=== PATIENT | male | born 1980 | race Caucasian/White ===

== ENCOUNTER 2023-03-04 08:51 | Emergency (ER) | payer BC, SELFPAY ==
[2023-03-04 08:58] VITALS: BP 141/84; PULSE 73; RESP 20; TEMP 36.7; O2SAT 100
--- NOTE | 2023-03-04 09:25 | ED.SKABFB ---
HPI - Skin/Abscess/Foreign Bdy General Chief complaint: Skin/Abscess/Foreign Body Stated complaint: Left toe blister growing Time Seen by Provider: 03/04/23 09:25 History of Present Illness HPI narrative: Patient presents with that paronychia to his left little toe. Patient states he noticed a couple days ago but the swelling and pain has gotten worse in the last 24 hours. Patient denies any drainage from the area. No streaking. Related Data Allergies Allergy/AdvReac Type Severity Reaction Status Date / Time ampicillin Allergy Unknown unknown Verified 03/04/23 09:34 Review of Systems Review of Systems: CONSTITUTIONAL: Denies fever, chills, or sweats. EYES: Denies visual changes, redness, or discharge. ENT: Denies rhinorrhea, congestion, sore throat, or otalgia. CARDIOVASCULAR: Denies chest pain, palpitations, or edema. RESPIRATORY: Denies cough or dyspnea. GASTROINTESTINAL: Denies abdominal pain, nausea, vomiting, or diarrhea. GENITOURINARY: Denies dysuria or hematuria. SKIN: Denies rash or itching. MUSCULOSKELETAL: Denies back pain, joint pain, or myalgia. NEUROLOGIC: Denies headache, numbness, or weakness. PSYCHIATRIC: Denies anxiety or depression. PMFSH Comments At time of signature, agree with nursing past medical, surgical, social and family history. There is no relevant family history pertinent to the presenting complaint Exam Narrative: GENERAL: Well-appearing, well-nourished, and in no acute distress. HEAD: Normocephalic, atraumatic. EYES: PERRLA and EOMI. ENT: Nares clear, no rhinorrhea or epistaxis. Mucous membranes moist. NECK: Supple. CHEST: Clear to auscultation. No respiratory distress. HEART: Regular rate and rhythm. No murmur heard. Normal peripheral pulses. ABDOMEN: Soft, nontender, nondistended, normal active bowel sounds. EXTREMITIES: Normal range of motion. No edema.left little toe sWELLING AND REDNESS AND FLUCTUANCE CONSISTENT WITH PARONYCHIA. NORMAL CAP REFILL. NORMAL SENSATION OF DISTAL TOE. NORMAL 2 POINT DISCRIMINATION. NORMAL MOVEMENT OF TOE AT PIP, DIP, MCP. NORMAL FOOT EXAM. NO STREAKING OR REDNESS INTO FOOT SKIN: Warm, dry, no rash. NEURO: No focal deficits. Alert and oriented x3. [place] Coma Scale Eye Opening: Spontaneous 4 [place] Coma Scale Motor: Obeys Commands 6 [place] Coma Scale Verbal: Oriented 5 [place] Coma Scale Total 15 Course Course Level of Care: Express Care Visit Vital Signs Vital signs: Vital Signs Temperature 36.7 C 03/04/23 08:58 Pulse Rate 73 03/04/23 08:58 Respiratory Rate 20 03/04/23 08:58 Blood Pressure 141/84 H 03/04/23 08:58 Pulse Oximetry 100 03/04/23 08:58 Oxygen Delivery Room Air 03/04/23 08:58 Temperature 36.7 C 03/04/23 08:58 Pulse Rate 73 03/04/23 08:58 Respiratory Rate 20 03/04/23 08:58 Blood Pressure 141/84 H 03/04/23 08:58 Pulse Oximetry 100 03/04/23 08:58 Oxygen Delivery Room Air 03/04/23 08:58 Please CARY schedule a followup visit with your personal physician for further evaluation and treatment. Including recheck and discussion of your blood pressure. If your symptoms persist, change or worsen significantly before you can contact your personal physician then please, without delay, go to the emergency department for further evaluation MDM - Skin/Abscess/Foreign Bdy Differential Diagnosis Differential diagnosis: Likely viral exanthem, dermatophytosis, urticaria, herpes zoster, allergic reaction to drug, cellulitis, eczema, insect bites, impetigo and contact dermatitis Discharge Plan Discharge Clinical Impression: Paronychia Patient Disposition: Home, Self-Care Condition: Stable Instructions: Antibiotic Form, Paronychia (ED) Additional Instructions: The following will help your at home: ?Soak the wound in hot water or apply hot packs (small towel soaked in hot water) to the area for 20 minutes at a time. Do this three to four times a day. ?Apply antibiotic cream or ointment onto the skin 3
== END 2023-03-04 09:33 | disposition home or self-care (01) ==
PROVIDERS: Emergency Provider Nurse Practitioner Family
DX: L03.032 Cellulitis of left toe (principal)
CPT/HCPCS: 99203; G0463

== ENCOUNTER 2023-04-09 10:40 | Emergency (ER) | payer BC, SELFPAY ==
--- NOTE | ~2023-04-09 | XR_ITS ---
EXAMINATION: XR chest 2V DATE: 04/09/2023 11:17 INDICATION: Cough. Smoker. TECHNIQUE: Frontal and lateral views of the chest were obtained. COMPARISON: None. FINDINGS: A calcified right lung nodule is consistent with old granulomatous disease. No pleural effu leti or pneumothorax. The heart size is normal. IMPRESSION: 1. No acute cardiopulmonary disease. Reviewed, dictated and finalized at location A.
[2023-04-09 10:45] VITALS: BP 126/85; PULSE 73; RESP 16; TEMP 36.7; O2SAT 99
--- NOTE | 2023-04-09 11:08 | ED.URI ---
HPI - URI/Sore Throat General Chief Complaint: Upper Respiratory Infection Stated Complaint: Cough/Sinus Pain Source: patient and RN notes reviewed History of Present Illness HPI Narrative: 43-year-old male presents to urgent care with complaints of a cough times 10 days. Patient states his cough is worse at nighttime. The patient states this started out with congestion in his face which is improving but his cough is no longer productive. Pt reports SOB with exertion. Denies any ear pain, sore throat, chest pain, fevers, chills, or vomiting. Pt states he did take a cough drop the other night. Related Data Allergies Allergy/AdvReac Type Severity Reaction Status Date / Time ampicillin Allergy Unknown unknown Verified 04/09/23 10:54 Review of Systems Review of Systems: Pertinent positives and pertinent negatives per HPI. PMFSH Comments At the time of my signature, I reviewed and agree with the nursing past medical, surgical, social, and family history. There is no relevant family history pertinent to the patient complaint. Exam Narrative: GENERAL: This is a well-nourished, well-developed patient, in no apparent distress. HEAD: normocephalic, atraumatic. EYES: Sclera clear/white. Vision is grossly intact. EARS: External ears normal, auditory canals clear and without drainage, TMs normal without perforation. Hearing grossly intact. NOSE: External nose normal with no obvious nasal discharge, nares without redness, no rhinorrhea. THROAT: Mucous membranes moist, posterior pharynx clear. NECK: Neck supple, non-tender without lymphadenopathy, masses or thyromegaly. CARDIOVASCULAR: Regular rate and rhythm without murmurs, gallops, or rubs. RESPIRATORY: Clear to auscultation. Breath sounds equal bilaterally. No wheezes, rales, or rhonchi. SKIN: warm, intact with no suspicious lesions or rash, good texture and turgor. NEURO: awake, alert, and oriented to person, place and time. There were no obvious focal neurologic abnormalities. BACK: Nontender without deformity or crepitus. No flank tenderness. Course Course Level of Care: Express Care Visit Vital Signs Vital signs: Vital Signs Temperature 98.1 F 04/09/23 10:45 Pulse Rate 73 04/09/23 10:45 Respiratory Rate 16 04/09/23 10:45 Blood Pressure 126/85 04/09/23 10:45 Pulse Oximetry 99 04/09/23 10:45 Oxygen Delivery Room Air 04/09/23 10:45 Temperature 98.1 F 04/09/23 10:45 Pulse Rate 73 04/09/23 10:45 Respiratory Rate 16 04/09/23 10:45 Blood Pressure 126/85 04/09/23 10:45 Pulse Oximetry 99 04/09/23 10:45 Oxygen Delivery Room Air 04/09/23 10:45 Reviewed MDM - URI/Sore Throat MDM Narrative Medical decision making narrative: Take steroids as directed. May use the inhaler every 4-6 hours as needed for coughing. Increase fluids at home. Avoid any and all smoke. May use a humidifier in the bedroom. Increase your Vitamin C. Follow-up with personal physician in 2-5 days. Differential Diagnosis Differential diagnosis: Likely upper respiratory infection, bronchitis and other (pna) Imaging Data Radiologist's impression: [facility] [employer] [place] [address] XRay Report Signed Patient: Joel Lubin : 1980 MR#: [id number] Age/Sex: 43 / M Acct:[id number] Loc: [facility]? ? ADM Date: 04/09/23Attending Dr: Ordering Physician: Fani Schmidt APRN Date of Service: 04/09/23 Procedure(s): XR chest 2V Accession Number(s): [id number] cc: Fani Schmidt APRN; UNKNOWN,DOCTOR~ EXAMINATION: XR chest 2V DATE: 04/09/2023 11:17 INDICATION: Cough. Smoker. TECHNIQUE: Frontal and lateral views of the chest were obtained. COMPARISON: None. FINDINGS: A calcified right lung nodule is consistent with old granulomatous disease. No pleural effusion or pneumothorax. The heart size is normal. IMPRESSION: 1. No acute cardiopulmonary disease.
== END 2023-04-09 11:30 | disposition home or self-care (01) ==
PROVIDERS: Emergency Provider Nurse Practitioner Family
DX: J40 Bronchitis, not specified as acute or chronic (principal)
CPT/HCPCS: 71046; 99213; G0463

== ENCOUNTER 2025-08-02 10:09 | Emergency (ER) | payer BC, SELFPAY ==
--- OUTSIDE RECORDS SUMMARY | 2020-04-20 08:15 | XMS_ITS | Continuity of Care Document ---
Author Organization [facility] Address [address] [facility] [facility] [address] [place] [address] Phone Care Team Providers Care Postie Name Role Phone Gerber Stapleton MD Unavailable Unavailable Allergies, Adverse Reactions, Alerts Substance Reaction Status Criticality No Known Allergies Active No Inform ation Medications Medication Instructions Dosage Effective Dates (start - stop) Status Comments Polytrim 10,000 unit-1 mg/mL eye drops instill 1 drop by ophthalmic route 4 times every day into right eye 1 drop - Active Procedures Procedure Date Remove Foreign Body From Eye Office/outpatient Visit, Est Remove Foreign Body From Eye Office/outpatient Visit, New Office/outpatient Visit, New Remove Foreign Body From Eye Advance Directives Directive Yes / No Effective Date File Name No Information Encounters Encounter Description Practice Location Reason(s) For Visit Diagnoses Date Provider Providers Copied on Encounter Office/outpat ient Visit, Est [facility], [address], [place], [place], [address], [place] tel:[phone] SEC Joe PISANO Professional 1 week cornea check (chief complaint) Foreign body of right cornea, subsequent encounter 0 Pieter Mayes. [address], [facility] [place], [address], [place]. tel:[phone] Referring Provider: Gerber Pal [address], [place], [address] . tel:[phone] Office/outpat ient Visit, [facility], [address], [place], [place], [address], tel:[phone] SEC Joe [place] Professional WIE (chief complaint) Foreign body of right cornea, initial encounter 0 Pieter Mayes. [address] [facility], [address], [place], [place], [address], [place]. tel:[phone] Referring Provider: Gerber Pal, [address] [facility] [address], [place], [address] . tel:[phone] Office/outpat ient Visit, [facility], [address], [place], [place], [address], tel:[phone] SEC [place] Professional Foreign body sensation (chief complaint) Corneal foreign body 5 Roland Cherry. [address] [facility], [facility] [address], [place], [place], [address], . tel:[phone] Referring Provider: Dilip Degroot, [address] [facility] [address], [place], [address] . tel:[phone] Family History Family Member Type Diagnosis Age At Onset No Information Payers Payer name Insurance type Covered green party ID Pankaj hogannina(danial) Cindy [facility] [id number] Social History Type Description Quantity Date Captured Comments Alcohol Use Details No Caffeine Use Details Tobacco Use Status Cigarette smoker Smoking Status Current every day smoker Smoking Tobacco Use Details Cigarette: No Details Available Cigarette: No Details Available Sex Male Chief Complaint And Reason For Visit From encounter dated '04/20/2020 13:15'. 1 week cornea check (chief complaint). Description: The 40 year old male presents for evaluation of1 week cornea check in the right eye. Patient states the eye still feels irritated at times. Patient using Poly qid OD patient admits to occasionally missing a gtt. Patient does not have a PCP Reason For Referral Reason For Referral No Information Plan Of Treatment Date Type Action Status Goal Tobacco cessation counseling completed Goal Tobacco cessation counseling completed Patient Education Object in the Eye: Care Instructions completed Patient Education Object in the Eye: Care Instructions completed History Of Present Illness Encounter Date Complaint History Of Prese nt Illness 1 week cornea check The 40 year old male presents for evaluation of 1 week cornea check in the right eye. Patient states the eye still feels irritated at times. Patient using Poly qid OD patient admits to occasionally missing a gtt. Patient does not have a PCP WIE The 40 year old male presents for evaluation of WIE in the right eye. 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 Patient states the eye is red, FBS, sensitive to light, and painful. Patient states the eye was worse yesterday than today. Patient does not have a PCP Foreign body sensation Patient p resents for a WIE. Patient c/o while grinding Monday got a piece of metal in OS. Patient went to ER. Patient c/o OS red, watering, and sensitive to light. Functional Status Date Functional Assessmen t No Information Instructions Date Instruction Additional Infor michael Impression/Plan Impression/Plan - [place] used at slit lamp to remove foreign body OS. Start Ilevro OS BID prn for pain, and Tobrex QID OS. Sampe of Ilevro given. Erx Tobrex to [facility] in [place]. Return as needed. Related to Corneal foreign body - as needed Related to Corne al foreign body Assessments Type Assessment Date assessment Foreign body of right cornea, miranda bsequent encounter Patient Care Teams Name Effective Dates (start - stop) Status Members No Information
--- OUTSIDE RECORDS SUMMARY | 2020-04-20 08:15 | XMS_ITS | Continuity of Care Document ---
Author Organization [facility] Address [address] [facility] [address] [facility] [address] [place] [address] Phone Care Team Providers Care Commercial Decorator Name Role Phone Gerber Stapleton MD Unavailable [...] Copied on Encounter Office/outpat ient Visit, [facility], [address], [place], [place], [address], [place] tel:[phone] SEC Joe PISANO Professional 1 week cornea check (chief complaint) Foreign body of right cornea, subsequent encounter 0 Pieter Mayes. [address], [facility], [address], [place]. tel:[phone] Referring Provider: Gerber Pal [address], [place], [address] . tel:[phone] Office/outpat ient Visit, [facility], [address], [place], [place], [address], tel:[phone] SEC [place] Professional WIE (chief complaint) Foreign body of right cornea, initial encounter 0 Pieter Mayes. [address] [facility], [place], [place], [address], [place]. tel:[phone] Referring Provider: Gerber Pal, [address] [facility] [address], [place], [address] . tel:[phone] Office/outpat ient Visit, [facility], [address], [place], [place], [address], tel:[phone] SEC [place] Professional Foreign body sensation (chief complaint) Corneal foreign body 5 Roland Cherry. [address] [facility], [facility] A, [place], [place], [address], . tel:[phone] Referring Provider: Dilip Degroot, [address] [facility], [place], [address] . tel:[phone] Family History Family Member Type Diagnosis Age At Onset No Information Payers Payer name Insurance type Covered libertarian ID Pankaj hogannina(danial) Cindy [facility] [id number] Social History Type Description Quantity Date Captured [...] right eye. 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 Start Ilevro OS BID prn for pain, and Tobrex QID OS. Sampe of Ilevro given. Erx Tobrex to [facility] in [place]. Return as needed. Related to Corneal foreign body - as needed Related to Corne al foreign body Assessments Type Assessment Date assessment Foreign body of right cornea, miranda bsequent encounter Patient Care Teams Name Effective Dates (start - stop) Status Members No Information
--- OUTSIDE RECORDS SUMMARY | 2025-08-02 10:13 | XMS_ITS | Clinical Summary ---
Author Organization [facility] Address [address] [place] [address] Phone Care Team Providers Care Supervisor Facepiece Line Name Role Phone Provider, None Primary Care Provider Unavailabl e Allergies No known active allergies Medications No known medications Social History Tobacco Use Types Packs/Day Years Used Date Smoking Tobacco: Every Day Cigarettes Smokeless Tobacco: Never Alcohol Use Standard Drinks/Week Comments No 0 (1 standard drink = 0.6 oz pur e alcohol) Sex and Gender Information Value Date Recorded Sex Assigned at Male 12/30/2023 10:47 PM ELECTROMECHANICAL TECHNICIAN Legal Sex Male 12:43 AM CDT Gender Identity Male 12/30/2023 10:47 PM ELECTROMECHANICAL TECHNICIAN Sexual Orientation Not on file Last Filed Vital Signs Vital Sign Reading Time Taken Comments Blood Pressure 134/84 12/31/2023 1:30 AM ELECTROMECHANICAL TECHNICIAN Pulse 69 12/31/2023 1:30 AM ELECTROMECHANICAL TECHNICIAN Temperature 36.6 C (97.9 F) 12/30/2023 10:22 PM ELECTROMECHANICAL TECHNICIAN Respiratory Rate 12 12/31/2023 1:30 AM ELECTROMECHANICAL TECHNICIAN Oxygen Saturation 98% 12/31/2023 1:30 AM ELECTROMECHANICAL TECHNICIAN Inhaled Oxygen Concentration - - Weight 79.4 kg (175 lb) 12/30/2023 10:22 PM ELECTROMECHANICAL TECHNICIAN Height 180.3 cm (5' 11) 12/30/2023 10:22 PM ELECTROMECHANICAL TECHNICIAN Body Mass Index 24.41 12/30/2023 10:22 PM ELECTROMECHANICAL TECHNICIAN Plan of Treatment Health Maintenance Due Date Last Done Comments Hepatitis C Virus (HCV) Screening 1980 TdaP Immunization 1980 Hepatitis B Immunization (1 of 3 - 19+ 3-dose series) 01/31/2000 Pneumococcal Immunization Combined (1 of 2 - PCV) 01/31/2000 Human Papillomavirus (HPV) Immunization (1 - 3-dose SCDM series) 01/31/2008 SARS-COV-2 Immunization (3 - season) 2024 07/31/2021, 07/09/2021 Influenza Immunization (#1) 2025 Respiratory Syncytial Virus (RSV) Immunization (Adult) (1 - 1-dose 75+ series) 01/31/2056 Meningococcal Immunization (ACWY) Aged Out No longer eligible b ased on patient's age to complete this topic Rotavirus Immunization Aged Out No lo nger eligible based on patient's age to complete this topic Care Teams Supervisor Facepiece Line Relationship Specialty Start Date End Date Provider, None [place] PCP - General 07/28/18
[2025-08-02 10:14] VITALS: BP 151/94; PULSE 89; RESP 16; TEMP 36.4; O2SAT 100
[2025-08-02] MEDS: TETANUS,DIPHTHERIA,AC PERTUSSIS ADULT (0.5 ML) BOOSTRIX IM (10:36)
--- NOTE | 2025-08-02 10:39 | ED.GENADULT ---
HPI - General Adult General Chief complaint: Wound/Laceration Stated complaint: wound between toes on right foot Source: patient Mode of arrival: ambulatory Limitations: no limitations History of Present Illness HPI narrative: Pt presents requesting information on how to dress a wound he has to the fourth digit of the right foot. He states on of this week he noted some bleeding from the fourth digit of the right foot. He wears steel-toed boots for work and states he believes his 4th and 5th digits were rubbing against one another, causing a blister which erupted. He initally cleaned the area with hydrogen peroxide. He states he has been applying neosporin and covering with dry gauze. The gauze seems to stick to the area. He states he came in today for education on how to dress the wound. He is not diabetic. No fever, chills or purulence from the area. He is not sure when his last tetanus shot was. Related Data Allergies Allergy/AdvReac Type Severity Reaction Status Date / Time ampicillin Allergy Unknown unknown Verified 08/02/25 10:18 Review of Systems Review of Systems: CONSTITUTIONAL: Denies fever, chills, or sweats. EYES: Denies visual changes, redness, or discharge. ENT: Denies rhinorrhea, congestion, sore throat, or otalgia. CARDIOVASCULAR: Denies chest pain, palpitations, or edema. RESPIRATORY: Denies cough or dyspnea. GASTROINTESTINAL: Denies abdominal pain, nausea, vomiting, or diarrhea. GENITOURINARY: Denies dysuria or hematuria. SKIN: Reports wound to the fourth digit of the right foot. MUSCULOSKELETAL: Denies back pain, joint pain, or myalgia. NEUROLOGIC: Denies headache, numbness, dizziness, or weakness. PSYCHIATRIC: Denies anxiety or depression. [facility] Past Medical History Medical History No pertinent past medical history Surgical History Surgical History No pertinent past surgical history Family History Family History Father Family history non-contributory Social History Social History Smoking packs per day: 1 Smoking cigarettes per day: 20.0 Smoking status: Current every day smoker Tobacco type: cigarettes Substance use: never Gender identity (if verbalized by the patient): Male Spiritual care concerns: No Exam Narrative: GENERAL: Well-appearing, well-nourished, and in no acute distress. HEAD: Normocephalic, atraumatic. EYES: PERRLA and EOMI. ENT: Nares clear, no rhinorrhea or epistaxis. Mucous membranes moist. Oropharynx without tonsillar hypertrophy exudate or other lesions. Bilateral TMs pearly morales nonbulging NECK: Supple. No adenopathy or masses. No carotid bruits or JVD CHEST: Clear to auscultation. No respiratory distress. No wheezes rales or rhonchi HEART: Regular rate and rhythm. No murmur heard. Normal peripheral pulses. ABDOMEN: Soft, nontender, nondistended, normal active bowel sounds. EXTREMITIES: Normal range of motion. No edema. SKIN: There is a 1 x 1.5 cm area of excoriation noted to the lateral aspect of the 4th digit of the right foot. Wound bed is pink. NEURO: No focal deficits. Alert and oriented x3. PSYCH: Normal mood and affect. Course Course Emergency Course: This is a 45-year-old male who presented for evaluation of a wound the 4th digit of the right foot. Is provided with education on how to care for the wound. Wound was dressed with nonadherent dressing. He was updated on tetanus. Discharge with cephalexin. He should follow up with primary provider. Go to the ER for worsening symptoms. Patient in agreement with plan of care. Level of Care: Express Care Visit Vital Signs Vital signs: Vital Signs Temperature 36.4 C 08/02/25 10:14 Pulse Rate 89 08/02/25 10:14 Respiratory Rate 16 08/02/25 10:14 Blood Pressure 151/94 H 08/02/25 10:14 Pulse Oximetry 100 08/02/25 10:14 Oxygen Delivery Room Air 08/02/25 10:14 Temperature 36.4 C 08/02/25 10:14 Pulse Rate 89 08/02/25 10:14 Respiratory Rate 16 08/02/25 10:14 Blood Pressure 151/94 H 08/02/25 10:14 Pulse Oximetry 100 08/02/25 10:14 Oxygen Delivery Room Air 08/02/25 10:14 Medical Decision Making Vital Signs Vital Signs: Vital Signs Temperature 36.4 C 08/02/25 10:14 Pulse Rate 89 08/02/25 10:14 Respiratory Rate 16 08/02/25 10:14 Blood Pressure 151/94 H 08/02/25 10:14 Pulse Oximetry 100 08/02/25 10:14 Oxygen Delivery Room Air 08/02/25 10:14 Temperature 36.4 C 08/02/25 10:14 Pulse Rate 89 08/02/25 10:14 Respiratory Rate 16 08/02/25 10:14 Blood Pressure 151/94 H 08/02/25 10:14 Pulse Oximetry 100 08/02/25 10:14 Oxygen Delivery Room Air 08/02/25 10:14 Discharge Plan Discharge Clinical Impression: Skin ulcer Patient Disposition: Home Condition: Stable Instructions: Antibiotic Form, Acute Wounds (DC) Additional Instructions: Wash area twice daily with antibacterial soap and water Pat dry Apply neosporin Cover with nonadherent dressing Do not use hydrogen peroxide Take antibiotics as directed Patient Language: Japanese Prescriptions: New cephalexin 500 mg capsule 500 mg PO Q6H Qty: 40 0RF Follow-up/Referrals: Damian Rios MD [Physician, Family Practice] Stand Alone Forms: Work/School Release IP Time of Disposition: 10:37
== END 2025-08-02 10:52 | disposition home or self-care (01) ==
PROVIDERS: Emergency Provider Nurse Practitioner
DX: L97.519 Non-pressure chronic ulcer of other part of right foot with unspecified severity (principal); Z23 Encounter for immunization; F17.210 Nicotine dependence, cigarettes, uncomplicated
CPT/HCPCS: 87070; 87075; 87077; 87147; 87186; 90471; 90715; 99213; G0463